=== PATIENT | male | born 1995 | race African-American/Black ===

== ENCOUNTER 2018-05-04 20:39 | Emergency (ER) | payer OTHER ==
[2018-05-04] MEDS ORDERED: NALOXONE HCL INJ/PF 0.4 MG/1 ML SDV IV ONE ×2 (22:07→22:57)
[2018-05-04] MEDS ORDERED: ONDANSETRON HCL INJ/PF 4 MG/2 ML SDV IV ONE (22:17)
[2018-05-04] MEDS ORDERED: METOCLOPRAMIDE HCL INJ/PF 10 MG/2 ML SDV IV ONE (22:18)
--- NOTE | 2018-05-04 22:19 | ER Document Report ---
ED General - General Chief Complaint: Drug Abuse Stated Complaint: LETHARGIC Time Seen by Provider: 05/04/18 20:54 Notes: The patient is a 22-year-old male with a past medical history of narcotic abuse who presents after ingesting 60 mg of oxycodone shortly prior to arrival. His family found him snoring and difficult to wake. This prompted them to contact emergency medical services who brought him to the emergency department. The patient denies any suicidal intention behind taking his medication stating it was only to get high. He states he had last used approximately 10 months ago. He denies any additional coingestions. He states he feels tired and somewhat nauseated but denies any additional complaints. TRAVEL OUTSIDE OF THE [place] IN LAST 30 DAYS: No - HPI Onset: Just prior to arrival Onset/Duration: Sudden Quality of pain: No pain Severity: None Pain Level: Denies Associated symptoms: None Exacerbated by: Denies Relieved by: Denies Similar symptoms previously: Yes Recently seen / treated by doctor: No - Related Data Allergies/Adverse Reactions: amoxicillin trihydrate [From Augmentin] Adverse Reaction (Verified 11/06/14 16: 43) Potassium Clavulanate * [From Augmentin] Adverse Reaction (Verified 11/06/14 16: 43) Past Medical History - General Information source: Patient, Relative - Social History Smoking Status: Current Every Day Smoker Chew tobacco use (# tins/day): No Frequency of alcohol use: Occasional Drug Abuse: Prescription drugs Lives with: Family Family History: Reviewed & Not Pertinent Patient has suicidal ideation: No Patient has homicidal ideation: No Pulmonary Medical History: Reports: Hx Asthma Renal/ Medical History: Denies: Hx Peritoneal Dialysis Musculoskeltal Medical History: Reports Hx Musculoskeletal Deformity, Reports Hx Musculoskeletal Trauma Psychiatric Medical History: Reports: Hx Anxiety, Hx Depression Traumatic Medical History: Reports: Hx Fractures - skull, Hx Traumatic Brain Injury - Immunizations Immunizations up to date: No Hx Diphtheria, Pertussis, Tetanus Vaccination: No Review of Systems - Review of Systems Notes: Constitutional: Negative for fever. HENT: Negative for sore throat. Eyes: Negative for visual changes. Cardiovascular: Negative for chest pain. Respiratory: Negative for shortness of breath. Gastrointestinal: Negative for abdominal pain, positive for nausea Genitourinary: Negative for dysuria. Musculoskeletal: Negative for back pain. Skin: Negative for rash. Neurological: Negative for headaches, weakness or numbness. 10 point ROS negative except as marked above and in HPI. Physical Exam - Vital signs Vitals: Resp Pulse Ox 13 95 05/04/18 20:48 05/04/18 20:48 Interpretation: Tachycardic Notes: PHYSICAL EXAMINATION: GENERAL: Initially somewhat lethargic but still wakes to loud voice HEAD: Atraumatic, normocephalic. EYES: Pupils equal round and reactive to light, extraocular movements intact, sclera anicteric, conjunctiva are normal. ENT: nares patent, oropharynx clear without exudates. Moist mucous membranes. NECK: Normal range of motion, supple without lymphadenopathy LUNGS: Breath sounds clear to auscultation bilaterally and equal. No wheezes rales or rhonchi. HEART: Regular tachycardia without murmurs ABDOMEN: Soft, nontender, normoactive bowel sounds. No guarding, no rebound. No masses appreciated. EXTREMITIES: Normal range of motion, no pitting or edema. No cyanosis. NEUROLOGICAL: No focal neurological deficits. Moves all extremities spontaneously and on command. PSYCH: Somewhat lethargic SKIN: Warm, Dry, normal turgor, no rashes or lesions noted. Course - Re-evaluation Re-evalutation: 05/04/18 22:17 Patient presents after taking to 30 mg oxycodones to get high. No suicidal intention. Patient arrives hypoventilatory, mildly tachycardic. He had resolution of these symptoms after receiving 0.4 mg of intravenous naloxone. Nausea and vomiting treated with Zofran. He will be monitored to ensure that he does not have recurrence of his hypoventilation. Remainder of examination is unremarkable. No signs or symptoms to suggest aspiration or any alternative concerning event from tonight's overdose. I have strongly emphasized with the patient the grave nature of ongoing opiate use and abuse. 05/04/18 22:58 Patient is again nodding off, starting to become hypoventilatory. Will give an additional dose of naloxone and continue to monitor. 05/05/18 00:13 Patient has remained awake, alert, no further episodes of somnolence or hypoventilation. At this time will discharge with return precautions and follow -up recommendations. Verbal discharge instructions given a the bedside and opportunity for questions given. Medication warnings reviewed. Patient is in agreement with this plan and has verbalized understanding of return precautions and the need for primary care follow-up in the next 24-72 hours. - Vital Signs Vital signs: Temp Pulse Resp BP Pulse Ox 14 95 05/05/18 00:00 05/05/18 00:00 Discharge - Discharge Clinical Impression: Hypoventilation Narcotic overdose Qualifiers: Encounter type: initial encounter Injury intent: accidental or unintentional Qualified Code(s): T40.601A - Poisoning by unspecified narcotics, accidental ( unintentional), initial encounter Nausea and vomiting Qualifiers: Vomiting type: unspecified Vomiting Intractability: non-intractable Qualified Code(s): R11.2 - Nausea with vomiting, unspecified Condition: Good Disposition: HOME, SELF-CARE Additional Instructions: You were seen today for opiate overdose. Please never use opiates of any kind. Over 130 people every day in the [place] from opiate overdoses. Do not become a statistic. You should urgently seek rehab or a similar resource. You can call 3-561-774-[employer] to find local resources. Return if you have any symptoms that are concerning to you including difficulty breathing, fever, persistent vomiting, or any other symptoms that are concerning to you.
== END 2018-05-05 00:26 | disposition home or self-care (01) ==
LOC: ER 20:39
DX: T40.601A Poisoning by unspecified narcotics, accidental (unintentional), initial encounter (principal); R06.89 Other abnormalities of breathing; R11.2 Nausea with vomiting, unspecified; F17.200 Nicotine dependence, unspecified, uncomplicated; J45.909 Unspecified asthma, uncomplicated
CPT/HCPCS: 96376; 99284; 96374; 96375; J2765; J2310

== ENCOUNTER 2018-10-05 22:53 | Emergency (ER) | payer SELFPAY ==
--- NOTE | 2018-10-05 23:08 | ER Document Report ---
ED General - General Stated Complaint: POSSIBLE OVERDOSE Time Seen by Provider: 10/05/18 23:04 Notes: Patient is a pleasant 23-year-old male who presents with complaint of accidental opiate overdose. Patient says proximally year ago use use every day. Since he moved here he only uses opiates once every few months. He says he will take them if he feels stressed. Today he was little stressed and therefore took a Percocet 30 mg. Says for some is used in a while. Made him stop breathing and was given Narcan which woke him up. He denies using any other medications. He says he does drink 1-2 beers a day. He does smoke cigarettes. He denies any other drugs. The only chronic medical problem he has is asthma. He has not had to use his inhaler in a long time. He denies any depression. Denies any suicidal thoughts. He has no other complaints at this time. TRAVEL OUTSIDE OF THE [place] IN LAST 30 DAYS: No - Related Data Allergies/Adverse Reactions: amoxicillin trihydrate [From Augmentin] Adverse Reaction (Verified 11/06/14 16: 43) Potassium Clavulanate * [From Augmentin] Adverse Reaction (Verified 11/06/14 16: 43) Past Medical History - Social History Smoking Status: Current Every Day Smoker Frequency of alcohol use: Heavy Drug Abuse: None Family History: Reviewed & Not Pertinent Pulmonary Medical History: Reports: Hx Asthma Renal/ Medical History: Denies: Hx Peritoneal Dialysis Musculoskeletal Medical History: Reports Hx Musculoskeletal Deformity, Reports Hx Musculoskeletal Trauma Psychiatric Medical History: Reports: Hx Anxiety, Hx Depression Traumatic Medical History: Reports: Hx Fractures - skull, Hx Traumatic Brain Injury - Immunizations Immunizations up to date: No Hx Diphtheria, Pertussis, Tetanus Vaccination: No Review of Systems - Review of Systems Notes: My Normal Review Basic REVIEW OF SYSTEMS: CONSTITUTIONAL : Denies fever, chills, or sweats. Denies recent illness. EENT: Denies eye, ear, throat, or mouth pain or symptoms. Denies nasal or sinus congestion. CARDIOVASCULAR: Denies chest pain. RESPIRATORY: apnea after opiate use. GASTROINTESTINAL: Denies abdominal pain. Denies nausea, vomiting, or diarrhea. MUSCULOSKELETAL: Denies neck or back pain or joint pain or swelling. NEUROLOGICAL: Loss of consciousness after opiate use. PSYCHIATRIC: Some stressors. ALL OTHER SYSTEMS REVIEWED AND NEGATIVE. Physical Exam - Vital signs Vitals: Resp Pulse Ox 13 95 10/05/18 22:57 10/05/18 22:57 - Notes Notes: General Appearance: Well nourished, alert, cooperative, no acute distress, no obvious discomfort. Well-appearing. Vitals: reviewed, See vital signs table. Head: no swelling or tenderness to the head Eyes: PERRL, EOMI, Conjuctiva clear Mouth: No decreasd moisture Lungs: No wheezing, No rales, No rhonci, No accessory muscle use, good air exchange bilaterally. Heart: Normal rate, Regular rythm, No murmur, no rub Abdomen: Normal BS, soft, No rigidity, No abdominal tenderness, No guarding, no rebound Extremities: strength 5/5 in all extremities, good pulses in all extremities, no swelling or tenderness in the extremities, no edema. Skin: warm, dry, appropriate color, no rash Neuro: speech clear, oriented x 3, normal affect, responds appropriately to questions. Course - Re-evaluation Re-evalutation: 10/06/18 01:26 Reevaluation patient has now been observed for over 2 hours. He has been off oxygen now for over an hour. Is not had any hypoxia. He is wide awake. Pupils are normal. They are not pinpoint. He is up and walking without any ataxia. He looks well. Family is at bedside. I informed him that we want him to never ever uses drugs again. If he is to use these drugs again he is to be very careful not to use large dosages as they will cause him to stop breathing. I prescribed him Narcan. I encourage him return to ER anytime if he needs any help. Patient agrees with plan will be discharged home. Dictation of this chart was performed using voice recognition software; therefore, there may be some unintended grammatical errors. - Vital Signs Vital signs: Temp Pulse Resp BP Pulse Ox 14 115/97 H 92 10/06/18 00:03 10/06/18 00:03 10/06/18 00:03 Discharge - Discharge Clinical Impression: Opiate overdose Qualifiers: Encounter type: initial encounter Injury intent: accidental or unintentional Qualified Code(s): T40.601A - Poisoning by unspecified narcotics, accidental ( unintentional), initial encounter Additional Instructions: I have prescribed you Narcan. People will still potentially overdose or take too much of an opiate medication. Please keep the Narcan with you so as if you do overdose again you have a medication that can reverse the overdose so that you do not stop breathing. If you have to use the Narcan you should return to the ER immediately. The best thing to do is to never use opiates again. Please stay away from these drugs as they are dangerous and life-threatening. Prescriptions: Naloxone HCl [Narcan] 4 mg NS TITI #1 spray
[2018-10-06 01:27] VITALS: BP 122/70
== END 2018-10-06 01:33 | disposition home or self-care (01) ==
LOC: ER 22:53
DX: T40.2X1A Poisoning by other opioids, accidental (unintentional), initial encounter (principal); R55 Syncope and collapse; F17.210 Nicotine dependence, cigarettes, uncomplicated; J45.909 Unspecified asthma, uncomplicated; F17.200 Nicotine dependence, unspecified, uncomplicated
CPT/HCPCS: 99284

== ENCOUNTER 2019-03-31 17:42 | Emergency (ER) | payer OTHER ==
[2019-03-31] MEDS ORDERED: KETOROLAC TROMETHAMINE 60 MG/2 ML SDV IM ONE (18:07)
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
[2019-03-31 19:36] VITALS: BP 132/61
== END 2019-03-31 19:40 | disposition home or self-care (01) ==
LOC: ER 17:42
DX: S16.1XXA Strain of muscle, fascia and tendon at neck level, initial encounter (principal); M54.2 Cervicalgia; M54.5 Low back pain; R25.2 Cramp and spasm; M54.6 Pain in thoracic spine; V49.50XA Passenger injured in collision with unspecified motor vehicles in traffic accident, initial encounter; F17.200 Nicotine dependence, unspecified, uncomplicated; J45.909 Unspecified asthma, uncomplicated
CPT/HCPCS: 99283; 96372; 72125; L0120; J1885

== ENCOUNTER 2019-11-03 07:39 | Emergency (ER) | payer SELFPAY ==
[2019-11-03 07:44] VITALS: BP 164/88
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
== END 2019-11-03 10:18 | disposition left against medical advice (07) ==
LOC: ER 07:39
DX: Z53.21 Procedure and treatment not carried out due to patient leaving prior to being seen by health care provider (principal); R05 Cough; R09.81 Nasal congestion

== ENCOUNTER 2019-11-16 18:43 | Emergency (ER) | payer OTHER ==
--- NOTE | 2019-11-16 19:25 | ER Document Report ---
ED Medical Screen (RME) - General Chief Complaint: Hip Pain Stated Complaint: LEFT HIP PAIN Time Seen by Provider: 11/16/19 19:15 TRAVEL OUTSIDE OF THE [place] IN LAST 30 DAYS: No - HPI Notes: 11/16/19 19:20 Patient is a 24-year-old male inmate who presents after falling 5 to 6 feet from his top bunk onto the floor when he was sleeping. Patient states he landed on his left side and has had significant left hip pain and hit the left side of his head off the ground. He is not aware if he lost consciousness or not. Pt states that he may have 'wet himself' a little. This occurred about 45 minutes ago. + 'mild' LOZADA with light sensitivity. Patient states that he has not tried to ambulate because of the pain. He does have a ringing in his ear as well. He has not had any neck pain otherwise. Denies any fever, neck pain, changes in speech/mentation, URI, sore throat, chest pain, palpitations, syncope, cough, shortness of breath, wheeze, dyspnea, abdominal pain, nausea/vomiting/diarrhea, urinary retention, dysuria, hematuria, loss of control of bowel or bladder, numbness/tingling, saddle anesthesia, muscle paralysis, or rash. I have treated and performed a rapid initial assessment of this patient. A comprehensive ED assessment and evaluation of the patient, analysis of test results and completion of medical decision making process will be conducted by additional ED providers. PHYSICAL EXAMINATION: accompanied by female nurse--limited in jump suit and handcuffs as well. GENERAL: Well-appearing, well-nourished and in no acute distress. A&O to person, place, but got the time wrong (told me November 2019). Answers questions appropriately otherwise HEAD: Atraumatic, normocephalic. No olmstead sign, + tenderness left parietal/temporal area to palp. EYES: Pupils equal round and reactive to light, extraocular movements intact, sclera anicteric, conjunctiva are normal. No raccoon eyes/entrapment ENT: EAC clear b/l. TM's intact b/l without erythema, fluid, or perforation. Nares patent and without discharge. oropharynx clear without exudates. No tonsilar hypertrophy or erythema. Moist mucous membranes. No sinus tenderness. No hemotympanum/CSF discharge. NECK: Normal range of motion, supple [place]uran with reading without lymphadenopathy. No rigidity. No midline tenderness, but cannot r/o C-spine by NEXUS d/t significant pain at hip. Chest: No flail chest. equal rise/fall. Non-tender LUNGS: Breath sounds clear to auscultation bilaterally and equal. No wheezes rales or rhonchi. HEART: Regular rate and rhythm without murmurs, rubs, gallops. Musculoskeletal: Left hip tenderness. LROM to passive/active due to pain and pt resistance. Back: FROM to passive/active. Strength 5+/5. No vertebral point tenderness, stepoffs, or deformities. Extremities: No cyanosis, clubbing, or edema b/l. Peripheral pulses 2+. Capillary refill less than 2 seconds. NEUROLOGICAL: GCS 15. Cranial nerves grossly intact. Normal speech. Normal sensory, motor exams. PSYCH: Normal mood, normal affect. - Related Data Allergies/Adverse Reactions: amoxicillin trihydrate [From Augmentin] Adverse Reaction (Verified 11/16/19 19:15) Potassium Clavulanate * [From Augmentin] Adverse Reaction (Verified 11/16/19 19:15) Past Medical History Pulmonary Medical History: Reports: Hx Asthma Renal/ Medical History: Denies: Hx Peritoneal Dialysis Musculoskeltal Medical History: Reports Hx Musculoskeletal Deformity, Reports Hx Musculoskeletal Trauma Psychiatric Medical History: Reports: Hx Anxiety, Hx Depression Traumatic Medical History: Reports: Hx Fractures - skull, Hx Traumatic Brain Injury - Immunizations Immunizations up to date: No Hx Diphtheria, Pertussis, Tetanus Vaccination: No Physical Exam - Vital signs Vitals: Temp Pulse Resp BP Pulse Ox 98.2 F 94 20 152/79 H 97 11/16/19 18:55 11/16/19 18:55 11/16/19 18:55 11/16/19 18:55 11/16/19 18:55 Course - Vital Signs Vital signs: Temp Pulse Resp BP Pulse Ox 98.2 F 94 20 152/79 H 97 11/16/19 18:55 11/16/19 18:55 11/16/19 18:55 11/16/19 18:55 11/16/19 18:55
[2019-11-16] MEDS ORDERED: ACETAMINOPHEN 325 MG TABLET PO ONE (19:27)
--- NOTE | 2019-11-16 19:49 | RADIOLOGY REPORT (SQ) ---
EXAM DESCRIPTION: PELVIS AP COMPLETED DATE/TIME: 11/16/2019 7:33 pm REASON FOR STUDY: pain s/p fall >5 feet COMPARISON: None. NUMBER OF VIEWS: One view TECHNIQUE: AP Pelvis LIMITATIONS: None. FINDINGS: MINERALIZATION: Normal. HIPS: No acute fracture or dislocation. No worrisome bone lesions. PELVIS AND SACRUM: No acute fracture or dislocation. No worrisome bone lesions. PUBIS AND ISCHIUM: No acute fracture. LOWER LUMBAR SPINE: No significant findings as visualized. SOFT TISSUES: No findings. OTHER: No other significant finding. IMPRESSION: No fracture or dislocation of the pelvis or bilateral proximal femurs in single AP view. COMMENT: Pelvic fractures are often occult on plain radiographs. If strong clinical suspicion for f racture, recommend CT or MR. TECHNICAL DOCUMENTATION: JOB ID: [id number] [employer]- All Rights Reserved Reading location - IP/workstation name: [email or web address]
--- NOTE | 2019-11-16 20:04 | RADIOLOGY REPORT (SQ) ---
EXAM DESCRIPTION: CT HEAD WITHOUT COMPLETED DATE/TIME: 11/16/2019 7:50 pm REASON FOR STUDY: pain s/p fall >5 feet COMPARISON: None. TECHNIQUE: Axial images acquired through the brain without intravenous contrast. Images reviewed wi th bone, brain and subdural windows. Additional sagittal and coronal reconstructions were generated. Images stored on PACS. All CT scanners at this facility use dose modulation, iterative reconstruction, and/or weight based d osing when appropriate to reduce radiation dose to as low as reasonably achievable (ALARA). [facility]: Dose Right [facility]: CareDose [facility]: Dose Right [facility]: Teradose 4D [facility]: Smart [employer] RADIATION DOSE: CT Rad equipment meets quality standard of care and radiation dose reduction techniq ues were employed. CTDIvol: 53.2 - 55.2 mGy. DLP: 1911 mGy-cm. mGy. LIMITATIONS: None. FINDINGS: VENTRICLES: Normal size and contour. CEREBRUM: No masses. No hemorrhage. No midline shift. No evidence for acute infarction. Normal gra y/white matter differentiation. No areas of low density in the white matter. CEREBELLUM: No masses. No hemorrhage. No alteration of density. No evidence for acute infarction. EXTRAAXIAL SPACES: No fluid collections. No masses. ORBITS AND GLOBE: No intra- or extraconal masses. Normal contour of globe without masses. CALVARIUM: No fracture. PARANASAL SINUSES: Minimal right maxillary sinus mucosal thickening. SOFT TISSUES: No mass or hematoma. OTHER: No other significant finding. IMPRESSION: No acute intracranial findings or calvarial fracture. EVIDENCE OF ACUTE STROKE: NO. COMMENT: Quality ID # [id number]: Final reports with documentation of one or more dose reduction techniques (e.g., Automated exposure control, adjustment of the mA and/or kV according to patient size, use of iterative reconstruction technique) TECHNICAL DOCUMENTATION: JOB ID: [id number] [employer]- All Rights Reserved Reading location - IP/workstation name: [email or web address]
--- NOTE | 2019-11-16 20:06 | RADIOLOGY REPORT (SQ) ---
EXAM DESCRIPTION: CT CERVICAL SPINE WITHOUT COMPLETED DATE/TIME: 11/16/2019 7:50 pm REASON FOR STUDY: pain s/p fall >5 feet COMPARISON: CT, C-spine 03/31/2019 TECHNIQUE: Axial images acquired through the cervical spine without intravenous contrast. Images re viewed with lung, soft tissue and bone windows. Reconstructed coronal and sagittal MPR images review ed. Images stored on PACS. All CT scanners at this facility use dose modulation, iterative reconstruction, and/or weight based d osing when appropriate to reduce radiation dose to as low as reasonably achievable (ALARA). [facility]: Dose Right [facility]: CareDose [facility]: Dose Right [facility]: Teradose 4D [facility]: [employer] RADIATION DOSE: CT Rad equipment meets quality standard of care and radiation dose reduction techniq ues were employed. CTDIvol: 21.1 mGy. DLP: 474 mGy-cm. mGy. LIMITATIONS: None. FINDINGS: ALIGNMENT: Anatomic. MINERALIZATION: Normal. VERTEBRAL BODIES: No fractures or dislocation. DISCS: No significant disc disease. FACETS, LATERAL MASSES, POSTERIOR ELEMENTS: No fractures. No dislocation. No acute findings. HARDWARE: None in the spine. VISUALIZED RIBS: No fractures. LUNG APICES AND SOFT TISSUES: No significant or acute findings. OTHER: No other significant finding. IMPRESSION: No acute bone abnormality of the cervical spine. TECHNICAL DOCUMENTATION: JOB ID: [id number] Quality ID # [id number]: Final reports with documentation of one or more dose reduction techniques (e.g., Au tomated exposure control, adjustment of the mA and/or kV according to patient size, use of iterative reconstruction technique) 2010 [employer]- All Rights Reserved Reading location - IP/workstation name: [email or web address]
--- NOTE | 2019-11-16 20:42 | ER Document Report ---
ED General - General Chief Complaint: Fall Stated Complaint: LEFT HIP PAIN Time Seen by Provider: 11/16/19 19:15 TRAVEL OUTSIDE OF THE [place] IN LAST 30 DAYS: No - HPI Context: Incarcerated patient in [facility] fell from top bunk while sleeping and complains of headache and left hip pain. Patient is able to ambulate. Denies loss of consciousness any nausea vomiting or fevers recent illnesses. - Related Data Allergies/Adverse Reactions: amoxicillin trihydrate [From Augmentin] Adverse Reaction (Verified 11/16/19 19:15) Potassium Clavulanate * [From Augmentin] Adverse Reaction (Verified 11/16/19 19:15) Past Medical History - Social History Smoking Status: Current Some Day Smoker Chew tobacco use (# tins/day): No Frequency of alcohol use: None Drug Abuse: None Family History: Reviewed & Not Pertinent Patient has suicidal ideation: No Patient has homicidal ideation: No Pulmonary Medical History: Reports: Hx Asthma, Hx Pneumonia Renal/ Medical History: Denies: Hx Peritoneal Dialysis Musculoskeletal Medical History: Reports Hx Musculoskeletal Deformity, Reports Hx Musculoskeletal Trauma Psychiatric Medical History: Reports: Hx Anxiety, Hx Depression Traumatic Medical History: Reports: Hx Fractures - skull, Hx Traumatic Brain Injury - Immunizations Immunizations up to date: No Hx Diphtheria, Pertussis, Tetanus Vaccination: No Review of Systems - Review of Systems Constitutional: No symptoms reported EENT: No symptoms reported Cardiovascular: No symptoms reported Respiratory: No symptoms reported Gastrointestinal: No symptoms reported Genitourinary: No symptoms reported Male Genitourinary: No symptoms reported Musculoskeletal: See HPI Skin: No symptoms reported Hematologic/Lymphatic: No symptoms reported Neurological/Psychological: See HPI Physical Exam - Vital signs Vitals: Temp Pulse Resp BP Pulse Ox 98.2 F 94 20 152/79 H 97 11/16/19 18:55 11/16/19 18:55 11/16/19 18:55 11/16/19 18:55 11/16/19 18:55 - General General appearance: Appears well, Alert - HEENT Head: Normocephalic, Atraumatic Eyes: Normal Conjunctiva: Normal Cornea: Normal Extraocular movements intact: Yes Pupils: PERRL - Respiratory Respiratory status: No respiratory distress Chest status: Nontender - Cardiovascular Rhythm: Regular Heart sounds: Normal auscultation Murmur: No - Abdominal Inspection: Normal Distension: No distension Bowel sounds: Normal - Extremities Knee: Other - Mild tenderness to lateral left hip with palpation - Neurological Neuro grossly intact: Yes Cognition: Normal Orientation: AAOx4 Cranial nerves: Normal Cerebellar coordination: Normal Motor strength normal: LUE, RUE, LLE, RLE 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 Course - Re-evaluation Re-evalutation: 11/16/19 20:41 Rule out fracture in any acute abnormalities with CT head and cervical spine. Will be discharged back to [facility] at this time. Return precautions provided - Vital Signs Vital signs: Temp Pulse Resp BP Pulse Ox 98.2 F 94 20 152/79 H 97 11/16/19 18:55 11/16/19 18:55 11/16/19 18:55 11/16/19 18:55 11/16/19 18:55 Discharge - Discharge Clinical Impression: Fall from bed Qualifiers: Encounter type: initial encounter Qualified Code(s): W06.XXXA - Fall from bed, initial encounter Condition: Good Disposition: OTHER Additional Instructions: If your symptoms persist over 7 to 10 days please seek medical reevaluation.
[2019-11-16 21:10] VITALS: BP 111/68
== END 2019-11-16 20:48 | disposition other institution (70) ==
LOC: ER 18:43
DX: M25.552 Pain in left hip (principal); R51 Headache; W06.XXXA Fall from bed, initial encounter; Y93.84 Activity, sleeping; Y92.143 Cell of prison as the place of occurrence of the external cause
CPT/HCPCS: 70450; 72125; 72170; 99284